=== PATIENT | female | born 2000 | race African-American/Black ===

== ENCOUNTER 2023-05-15 22:46 | Emergency (ER) | payer OTHER ==
[2023-05-15 22:54] VITALS: BMI 29.1
[2023-05-15] MEDS ORDERED: SODIUM CHLORIDE 0.9% 500 ML INFUS.BAG IV ONE (23:23)
[2023-05-15] MEDS ORDERED: ACETAMINOPHEN 1000 MG/100 ML BAG IVPB ONE (23:23)
[2023-05-15 23:25] VITALS: RESP 19
[2023-05-15 23:54] LABS: BASO % 0.2 % (0-2.0); EOS % 0.2 % (0-4.5); HEMATOCRIT 32.4 % (32.4-45.2); LYMPH % 4.4 % (8-40); MCH 31.6 pg (25.7-33.7); MCHC 33.9 g/dl (32.0-36.0); MEAN CELL VOLUME 93.2 fl (80-96); MEAN PLT VOLUME 10.1 fl (7.5-11.1); NEUT % 90.2 % (42.8-82.8); PLATELET COUNT 177 10^3/uL (134-434); RBC 3.48 M/mm3 (3.60-5.2); WHITE BLOOD COUNT 10.8 K/mm3 (4.0-10.0)
[2023-05-16 00:14] LABS: CALCIUM 8.6 mg/dL (8.5-10.1)
[2023-05-16 00:15] LABS: ALBUMIN 2.7 g/dl (3.4-5.0); BLOOD UREA NITROGEN 5.8 mg/dL (7-18)
[2023-05-16 00:18] LABS: CREATININE 0.6 mg/dL (0.55-1.3)
[2023-05-16 00:19] LABS: BILIRUBIN,TOTAL 0.2 mg/dL (0.2-1)
[2023-05-16 01:14] LABS: URINE APPEARANCE CLEAR; URINE BILIRUBIN NEGATIVE (NEGATIVE); URINE COLOR YELLOW; URINE GLUCOSE (UA) NEGATIVE (NEGATIVE); URINE KETONE 1+ (NEGATIVE); URINE LEUK ESTERASE NEGATIVE (NEGATIVE); URINE NITRITE NEGATIVE (NEGATIVE); URINE PROTEIN NEGATIVE (NEGATIVE); URINE UROBILINOGEN 0.2 mg/dL (0.2-1.0)
[2023-05-16] MEDS ORDERED: SODIUM CHLORIDE 0.9% 500 ML INFUS.BAG IV ONE (01:26)
[2023-05-16 01:37] LABS: MAGNESIUM 1.6 mg/dL (1.8-2.4)
[2023-05-16 02:26] VITALS: BP 114/49; PULSE 110; TEMP 98.8
== END 2023-05-16 02:47 | disposition home or self-care (01) ==
LOC: JER 22:46
PROC: 3E033NZ Introduction of Analgesics, Hypnotics, Sedatives into Peripheral Vein, Percutaneous Approach (ICD-10-PCS; principal; 2023-05-15)
DX: O98.512 Other viral diseases complicating pregnancy, second trimester (principal); J11.1 Influenza due to unidentified influenza virus with other respiratory manifestations; O26.892 Other specified pregnancy related conditions, second trimester; E86.0 Dehydration; R05.9 Cough, unspecified; R07.9 Chest pain, unspecified; Z3A.22 22 weeks gestation of pregnancy; Z20.822 Contact with and (suspected) exposure to COVID-19
CPT/HCPCS: 0241U-QW; 36415; 71045-TC-FY; 80053; 81003; 83735; 84443; 84484; 85025; 87086; 87186; 93005; 93010; 99285-25